=== PATIENT | male | born 1990 | race Caucasian/White ===

== ENCOUNTER 2017-09-20 16:38 | Emergency (ER) | payer BC ==
[~2017-09-20] VITALS: Ht 193 cm; Wt 83.0 kg
[2017-09-20 16:52] VITALS: BP 122/77
== END 2017-09-20 18:41 | disposition home or self-care (01) ==
LOC: ED 18:35
DX: S62.356A Nondisplaced fracture of shaft of fifth metacarpal bone, right hand, initial encounter for closed fracture (principal); W22.09XA Striking against other stationary object, initial encounter; Y93.89 Activity, other specified; Y92.89 Other specified places as the place of occurrence of the external cause; Y99.8 Other external cause status
CPT/HCPCS: 29125; 99284